=== PATIENT | male | born 1995 | race Caucasian/White ===

== ENCOUNTER 2023-10-08 04:11 | Emergency (ER) | payer MEDICAID ==
[~2023-10-08] VITALS: Ht 165.1 cm; Wt 60.0 kg
[2023-10-08 04:17] VITALS: BP 125/83; PULSE 84; RESP 12; TEMP 97.6; O2SAT 97
== END 2023-10-08 06:32 | disposition home or self-care (01) ==
LOC: ER 04:11
DX: J98.8 Other specified respiratory disorders (principal)
CPT/HCPCS: 99281